=== PATIENT | female | born 1985 | race Asian ===

== ENCOUNTER 2018-08-24 05:30 | Day surgery (SDC) | payer BC ==
[~2018-08-24] VITALS: Ht 149.9 cm; Wt 41.7 kg
[2018-08-24] MEDS ORDERED: CEFAZOLIN SOD 1 GM in D5W 50 ML IV ONE (07:15)
[2018-08-24] MEDS ORDERED: LR 1,000 ML IV.SOLN IV ONE (07:50)
[2018-08-24] MEDS ORDERED: KETOROLAC TROMETHAMINE 30 MG VIAL IVP ONE (07:50)
[2018-08-24] MEDS ORDERED: ONDANSETRON HCL 4 MG/2 ML VIAL IVP ONE (07:50)
[2018-08-24] MEDS ORDERED: OXYTOCIN 10 UNIT/ML VIAL IV ONE (07:50)
[2018-08-24] MEDS ORDERED: PROPOFOL 200MG/ 20ML VIAL (DIPRIVAN) IV ONE (07:50)
[2018-08-24] MEDS ORDERED: fentaNYL CITRATE/PF 100 MCG/2 ML AMP IVP ONE (07:50)
[2018-08-24] MEDS ORDERED: NS 1000 ML IV.SOLN IV ONE (07:50)
[2018-08-24] MEDS ORDERED: SEVOFLURANE 15 MIN GAS INH ONE (07:50)
[2018-08-24] MEDS ORDERED: MIDAZOLAM HCL 5 MG/5 ML VIAL IVP ONE (07:50)
[2018-08-24] MEDS ORDERED: LR 1,000 ML IV SCH ×2 (08:28→08:31)
[2018-08-24] MEDS ORDERED: MEPERIDINE HCL/PF 50 MG/ML AMP IVP PRN ×3 (08:30→08:45)
[2018-08-24] MEDS ORDERED: METOCLOPRAMIDE HCL 10 MG/2 ML VIAL IVP PRN ×2 (08:30→08:45)
[2018-08-24] MEDS ORDERED: MEPERIDINE HCL/PF 25 MG/ML DISP.SYRIN IVP PRN ×2 (08:30→08:45)
[2018-08-24] MEDS ORDERED: OXYCODONE/ACETAMINOPHEN 5-325 TABLET PO PRN (09:15)
[2018-08-24] MEDS ORDERED: ONDANSETRON HCL 4 MG/2 ML VIAL IVP PRN (09:15)
[2018-08-24] MEDS ORDERED: HYDROcodone/ACETAMIN 5-325 MG TAB (NORCO/ VICODIN) PO PRN (09:15)
[2018-08-24 09:45] VITALS: BP_SYST 101
== END 2018-08-24 13:15 | disposition home or self-care (01) ==
LOC: SDS 05:30 → SMU 05:30 → SDS 13:15
PROVIDERS: ATTEND Specialist
DX: N87.1 Moderate cervical dysplasia (principal); E28.2 Polycystic ovarian syndrome; N87.9 Dysplasia of cervix uteri, unspecified; N92.6 Irregular menstruation, unspecified; Z98.890 Other specified postprocedural states; Z79.899 Other long term (current) drug therapy
CPT/HCPCS: 57520; 58558; 88305; J0690; J1885; J2250; J2405; J2590; J2704; J3010; J7030; J7060; J7120

== ENCOUNTER 2020-03-20 13:57 | Outpatient (CLI) | payer BC | END 2020-03-20 19:25 | disposition home or self-care (01) | LOC: SLB 13:57 | PROVIDERS: ATTEND Specialist | DX: R93.89 Abnormal findings on diagnostic imaging of other specified body structures (principal); N92.6 Irregular menstruation, unspecified | CPT/HCPCS: 88305 ==